=== PATIENT | female | born 1930 | race Two or more races ===

== ENCOUNTER 2017-08-03 22:02 | Emergency (ER) | payer MEDICARE ==
[~2017-08-03] VITALS: Ht 170.2 cm; Wt 63.5 kg
[2017-08-03] MEDS ORDERED: Albuterol/Ipratropium 3ml neb HHN PRN (22:30)
[2017-08-03] MEDS ORDERED: LORazepam Inj 2mg/ml 1ml IV PRN (22:30)
[2017-08-03] MEDS ORDERED: Nitroglycerin Subl 0.4mg tab SL PRN (22:30)
[2017-08-03] MEDS ORDERED: Mylanta II UD 30ml ORAL PRN (22:30)
[2017-08-03] MEDS ORDERED: Miralax 17gm pkt ORAL PRN (22:30)
--- NOTE | 2017-08-03 22:46 | Emergency Room Report ---
History of Present Illness General Chief Complaint: Generalized Weakness Source: Patient, EMS Present Illness HPI Patient is an 87-year-old female brought in by EMS after increased weakness and syncopal episode. The patient had prior history dementia. She was noted to be flaccid by family member while he was transporting. The patient had brief loss of consciousness. The patient prior history of coronary artery disease and had cephalization for urinary tract infection for which history of Keflex.History is limited by patient's mental status. Allergies: Coded Allergies: No Known Allergies (Unverified , 08/03/17) Patient History Past Medical History: HTN, CAD, other - dementia Last Menstrual Period: none Now: No Reviewed Nursing Documentation: PMH: Agreed, PSxH: Agreed Nursing Documentation-PMH Hx Cardiac Problems: Yes Review of Systems All Other Systems: limited - by mental status Physical Exam Vital Signs Date Time Temp Pulse Resp B/P (MAP) Pulse Ox O2 Delivery O2 Flow Rate FiO2 08/03/17 21:59 98.2 75 16 133/63 99 Room Air Sp02 EP Interpretation: reviewed, normal General Appearance: normal inspection, well appearing, no apparent distress, alert, Chronically Ill Head: atraumatic ENT: normal ENT inspection, hearing grossly normal, normal voice Neck: normal inspection, supple, no bony tend, limited range of motion Respiratory: normal inspection, lungs clear, normal breath sounds, no respiratory distress, no retraction, no wheezing Cardiovascular #1: regular rate, rhythm, no edema Gastrointestinal: normal inspection, normal bowel sounds, non tender, soft, no guarding, no hernia Genitourinary: no CVA tenderness Musculoskeletal: normal inspection, back normal, normal range of motion Neurologic: normal inspection, alert, responsive, laborer construction or leak gang III-XII nml as tested, speech normal Psychiatric: normal inspection, judgement/insight normal, mood/affect normal Skin: normal inspection, normal color, no rash Medical Decision Making Diagnostic Impression: Primary Impression: Syncope Additional Impressions: Anemia Generalized weakness CAD (coronary artery disease) ER Course Patient presented for syncope. Differential diagnosis included but not limited arrhythmia, dehydration, acute coronary syndrome, severe anemia, pulmonary embolus. Because of complexity of patient's case laboratory testing and imaging studies were ordered. A CT imaging of the head read by radiology showed atrophic changes with chronic ischemic white matter changes. CT the abdomen pelvis read by radiology showed distended gallbladder without evident gallstones. Patient was discussed with Dr. Wallace Case [id number] from [facility]. The patient transferred to [place] for further evaluation treatment. Labs Test 08/03/17 22:56 08/03/17 22:57 Urine Color Yellow Urine Appearance Clear Urine pH 6.5 (4.5-8.0) Urine Specific [place] 1.015 (1.005-1.035) Urine Protein 1+ (NEGATIVE) Urine Glucose (UA) Negative (NEGATIVE) Urine Ketones Negative (NEGATIVE) Urine Occult Blood 1+ (NEGATIVE) Urine Nitrite Negative (NEGATIVE) Urine Bilirubin Negative (NEGATIVE) Urine Urobilinogen 1 MG/DL (0.0-1.0) Urine Leukocyte Esterase 1+ (NEGATIVE) Urine RBC 0-2 /HPF (0 - 2) Urine WBC 0-2 /HPF (0 - 2) Urine Squamous Epithelial Cells Few /LPF (NONE/OCC) Urine Bacteria Few /HPF (NONE) Urine Mucus Moderate /LPF (NONE/OCC) White Blood Count 8.5 K/UL (4.8-10.8) Red Blood Count 3.95 M/UL (4.20-5.40) Hemoglobin 8.9 G/DL (12.0-16.0) Hematocrit 31.2 % (37.0-47.0) Mean Corpuscular Volume 79 FL (80-99) Mean Corpuscular Hemoglobin 22.6 PG (27.0-31.0) Mean Corpuscular Hemoglobin Concent 28.6 G/DL (32.0-36.0) Red Cell Distribution Width 15.4 % (11.6-14.8) Platelet Count 326 K/UL (150-450) Mean Platelet Volume 6.7 FL (6.5-10.1) Neutrophils (%) (Auto) 80.4 % (45.0-75.0) Lymphocytes (%) (Auto) 11.2 % (20.0-45.0) Monocytes (%) (Auto) 6.5 % (1.0-10.0) Eosinophils (%) (Auto) 1.4 % (0.0-3.0) Basophils (%) (Auto) 0.5 % (0.0-2.0) Prothrombin Time 10.3 SEC (9.30-11.50) Prothromb Time International Ratio 1.0 (0.9-1.1) Activated Partial Thromboplast Time 25 SEC (23-33) Sodium Level 140 MMOL/L (136-145) Potassium Level 4.0 MMOL/L (3.5-5.1) Chloride Level 104 MMOL/L (98-107) Carbon Dioxide Level 25 MMOL/L (21-32) Anion Gap 11 mmol/L (5-15) Blood Urea Nitrogen 13 mg/dL (7-18) Creatinine 0.9 MG/DL (0.55-1.30) Estimat Glomerular Filtration Rate mL/min (>60) Glucose Level 124 MG/DL (74-106) Lactic Acid Level 1.30 mmol/L (0.66-2.22) Calcium Level 9.1 MG/DL (8.5-10.1) Total Bilirubin 0.6 MG/DL (0.2-1.0) Aspartate Amino Transf (AST/SGOT) 160 U/L (15-37) Alanine Aminotransferase (ALT/SGPT) 101 U/L (12-78) Alkaline Phosphatase 144 U/L (46-116) Total Creatine Kinase 53 U/L (26-308) Creatine Kinase MB < 0.5 NG/ML (0.0-3.6) Creatine Kinase MB Relative Index 0.9 Troponin I 0.000 ng/mL (0.000-0.056) Total Protein 7.9 G/DL (6.4-8.2) Albumin 2.9 G/DL (3.4-5.0) Globulin 5.0 g/dL Albumin/Globulin Ratio 0.6 (1.0-2.7) EKG Diagnostic Results Rate: normal - 71 Rhythm: NSR ST Segments: no acute changes Rhythm Strip Diag. Results EP Interpretation: yes Rhythm: NSR, no PVC's Last Vital Signs Date Time Temp Pulse Resp B/P (MAP) Pulse Ox O2 Delivery O2 Flow Rate FiO2 08/03/17 21:59 98.2 75 16 133/63 99 Room Air Status: unchanged Disposition: XFER [facility] Condition: Serious Jimenez Dumont Aug 03, 2017 22:46
[2017-08-03 23:14] LABS: BASOPHILS % (AUTO) 0.5 % (0.0-2.0); EOSINOPHILS % (AUTO) 1.4 % (0.0-3.0); LYMPHOCYTES % (AUTO) 11.2 % (20.0-45.0); MEAN CORPUSCULAR HEMOGLOBIN 22.6 PG (27.0-31.0); MEAN CORPUSCULAR HGB CONC 28.6 G/DL (32.0-36.0); MEAN CORPUSCULAR VOLUME 79 FL (80-99); MEAN PLATELET VOLUME 6.7 FL (6.5-10.1); MONOCYTES % (AUTO) 6.5 % (1.0-10.0); NEUTROPHILS % (AUTO) 80.4 % (45.0-75.0); PLATELET COUNT 326 K/UL (150-450); RED BLOOD COUNT 3.95 M/UL (4.20-5.40); RED CELL DISTRIBUTION WIDTH 15.4 % (11.6-14.8); WHITE BLOOD COUNT 8.5 K/UL (4.8-10.8)
[2017-08-03 23:19] VITALS: BP 130/50
[2017-08-03 23:25] LABS: ANION GAP 11 mmol/L (5-15); CALCIUM 9.1 MG/DL (8.5-10.1); CARBON DIOXIDE 25 MMOL/L (21-32); CHLORIDE 104 MMOL/L (98-107); CREATININE 0.9 MG/DL (0.55-1.30); SODIUM 140 MMOL/L (136-145)
[2017-08-03 23:32] LABS: PROTHROMBIN TIME 10.3 SEC (9.30-11.50)
[2017-08-03 23:38] LABS: ALANINE AMINOTRANSFERASE 101 U/L (12-78); ALBUMIN/GLOBULIN RATIO 0.6 (1.0-2.7); ASPARTATE AMINO TRANSFERASE 160 U/L (15-37); CKMB < 0.5 NG/ML (0.0-3.6); TOTAL PROTEIN 7.9 G/DL (6.4-8.2)
[2017-08-03 23:54] LABS: APPEARANCE,URINE CLEAR; KETONES,URINE NEGATIVE (NEGATIVE); LEUKOCYTE ESTERASE ,URINE 1+ (NEGATIVE); NITRITE,URINE NEGATIVE (NEGATIVE); PH,URINE 6.5 (4.5-8.0); PROTEIN,URINE 1+ (NEGATIVE); UROBILINOGEN,URINE 1 MG/DL (0.0-1.0)
[2017-08-03 23:55] LABS: BACTERIA,URINE FEW /HPF; MUCUS,URINE MODERATE /LPF (NONE/OCC); RBC,URINE 0-2 /HPF (0 - 2); SQUAMOUS EPITHELIAL CELL,UR FEW /LPF (NONE/OCC); WBC,URINE 0-2 /HPF (0 - 2)
[2017-08-04 01:07] VITALS: BP 122/51
[2017-08-04 02:06] VITALS: BP 125/58
[2017-08-04 02:47] VITALS: BP 132/65
[2017-08-04 03:26] VITALS: BP 134/55
[2017-08-04 03:36] VITALS: BP 134/55
[2017-08-04] MEDS ORDERED: NovoLOG Insulin Flexpen SUBQ SCH (06:30)
[2017-08-04] MEDS ORDERED: Heparin 5000 units/ml inj SUBQ SCH (09:00)
--- NOTE | 2017-08-04 09:37 | Diagnostic Imaging Report ---
Clinical Indication: Abdominal pain Technique: No oral contrast utilized, per emergency room physician request IV administration nonionic contrast. Venous phase spiral acquisition obtained through the abdomen and pelvis. Multiplanar reconstructions were generated. Total dose length product 417 mGycm. CTDIvol(s) 8 mGy. Dose reduction achieved using automated exposure control Comparison: None Findings: Rectum is minimally distended by stool. There is extensive colonic diverticulosis. No evidence of diverticulitis. Normal appendix. No small bowel distention. No free or loculated intraperitoneal air or fluid. Distal esophagus is unremarkable. The stomach is nondistended. The liver, gallbladder, bile ducts, pancreas, spleen, are unremarkable. The right kidney demonstrates a 12 mm interpolar region cyst. The left kidney demonstrates a subcentimeter low-attenuation lesion which is too small to characterize. The uterus is somewhat heterogeneous. Venous varicosities are seen in the left adnexal region, and there is mild dilatation and prominent contrast opacification of the left ovarian vein. No mesenteric or retroperitoneal mass or adenopathy. No pelvic mass or adenopathy. The included lung bases demonstrate some compressive atelectatic changes. The heart is mildly enlarged. The bones are unremarkable. Impression: No definite acute process Colonic diverticulosis. 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 Correlate with any clinical history that may suggest pelvic congestion syndrome Compressive left basilar atelectasis Cardiomegaly Incidental finding right renal cysts. Subcentimeter low-attenuation left renal lesion which is too small to characterize, most likely benign simple cyst Equivocal minimal rectal fecal impaction This agrees with the preliminary interpretation provided overnight by [facility] teleradiology service. The CT scanner at [facility] is accredited by the [employer] and the scans are performed using protocols designed to limit radiation exposure to as low as reasonably achievable to attain images of sufficient resolution adequate for diagnostic evaluation.
--- NOTE | 2017-08-04 11:01 | Diagnostic Imaging Report ---
Indications: Pain, increased weakness and syncopal episode, prior history of dementia, brief loss of consciousness Technique: Spiral acquisitions obtained through the brain. Angled axial and coronal 5 x 5 mm slices were reconstructed. Total dose length product 1351 mGycm. CTDI vol(s) 70 mGy. Dose reduction achieved using automated exposure control Comparison: None Findings: There is age-related enlargement of ventricles and extra axial CSF spaces. Small lacunar infarct is seen in the left lowe radiata. Lacunar infarct is also seen in the right internal capsule extending into the thalamus. Questionable small lacunar infarct seen in the left thalamus. There is a large lacunar infarct in the anterior right basal ganglia region which results in mild ex vacuo dilatation of the frontal horn of the right lateral ventricle. There is an old lacunar infarct in the anterior left basal ganglia region. The included sinuses are clear. There is evidence of prior bilateral ocular surgery. The mastoids are clear. 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
--- NOTE | 2017-08-04 11:02 | Diagnostic Imaging Report ---
Indication: SOB Technique: One view of the chest Comparison: none Findings: Lungs and pleural spaces are clear. Heart size is normal. Aorta is somewhat tortuous Impression: No acute process
--- NOTE | 2017-08-05 16:50 | Cardiology Report ---
APPROVED REPORT EKG Measurement Heart [id number] ID [id number] Sinus rhythm with 1st degree AV block Nonspecific ST and T wave abnormality Abnormal ECG
== END 2017-08-04 03:44 | disposition short-term general hospital (02) ==
LOC: EDBD 22:02 → EMR 22:30
DX: R55 Syncope and collapse (principal); D64.9 Anemia, unspecified; R53.1 Weakness; I25.10 Atherosclerotic heart disease of native coronary artery without angina pectoris; I10 Essential (primary) hypertension; F03.90 Unspecified dementia, unspecified severity, without behavioral disturbance, psychotic disturbance, mood disturbance, and anxiety
CPT/HCPCS: 36415; 70450; 71010; 74177; 80053; 81003; 82550; 82553; 83605; 84484; 85025; 85610; 85730; 87040; 93005; 96372; 96374; 96375; 96376; 99285; J1815; Q9967